=== PATIENT | male | born 1930 | race African-American/Black ===

== ENCOUNTER → 2017-04-05 | Outpatient (CLI) | payer MEDICARE ==
--- NOTE | 2017-04-05 16:05 | US ---
EXAMINATION TYPE: US abdomen limited DATE OF EXAM: 04/05/2017 COMPARISON: NONE CLINICAL HISTORY: 86-year-old male R10.11 Right Upper Quadrant Pain. No pain at time of exam TECHNIQUE: Multiple sonographic images of the right upper quadrant are obtained. FINDINGS: Liver Length: 14.2 cm Gallbladder Wall: 4.1 mm CBD: 0.5 cm Right Kidney: 8.3 x 5.3 x 5.0 cm Pancreas: not seen due to bowel gas Liver: Limited intercostal views show no focal lesion. Gallbladder: Contracted with multiple internal calculi and debris. Mild gallbladder wall thickening. No pericholecystic fluid or fluid within the hepatorenal recess. Evidence for sonographic Anguiano's sign: no CBD: Within normal limits. Right Kidney: No hydronephrosis IMPRESSION: 1. Cholelithiasis. Mild gallbladder wall thickening likely due to contracted state. If concern for ch ronic cholecystitis, consider HIDA scan with ejection fraction. 2. No biliary ductal dilatation.
== END | disposition home or self-care (01) ==
LOC: RADUSWWP 14:52
PROVIDERS: ATTEND Family Medicine
DX: K80.20 Calculus of gallbladder without cholecystitis without obstruction (principal)
CPT/HCPCS: 76705